=== PATIENT | male | born 1975 ===

== ENCOUNTER 2020-05-10 10:22 | Emergency (ER) | payer SELFPAY ==
[~2020-05-10] VITALS: Ht 175.3 cm; Wt 84.1 kg
--- NOTE | 2020-05-10 10:31 | NUR ---
Unable to obtain BP due to pt thrashing around and being uncooperative.
== END 2020-05-10 10:44 ==
LOC: ER 10:24
DX: T65.893A Toxic effect of other specified substances, assault, initial encounter (principal); H10.219 Acute toxic conjunctivitis, unspecified eye; F29 Unspecified psychosis not due to a substance or known physiological condition; Z88.0 Allergy status to penicillin; Z79.899 Other long term (current) drug therapy; Y92.89 Other specified places as the place of occurrence of the external cause
CPT/HCPCS: 99284

== ENCOUNTER 2020-06-04 03:00 | Emergency (ER) | payer BC, MEDICAID ==
[~2020-06-04] VITALS: Ht 175.3 cm; Wt 90.9 kg
[2020-06-04 03:04] VITALS: BP 147/101
== END 2020-06-04 03:23 | disposition home or self-care (01) ==
LOC: ER 03:01
DX: Z00.00 Encounter for general adult medical examination without abnormal findings (principal); F15.90 Other stimulant use, unspecified, uncomplicated; Z88.0 Allergy status to penicillin; Z79.899 Other long term (current) drug therapy
CPT/HCPCS: 99281